=== PATIENT | female | born 1965 | race Caucasian/White ===

== ENCOUNTER 2018-07-01 22:13 | Emergency (ER) | payer OTHER ==
[~2018-07-01] VITALS: Ht 162.6 cm; Wt 88.6 kg
[2018-07-01] MEDS ORDERED: LOSA25TA41 PO (22:35)
[2018-07-01] MEDS ORDERED: ATOR10TA84 PO (22:35)
[2018-07-01] MEDS ORDERED: SITA25 PO (22:35)
[2018-07-01] MEDS ORDERED: METF-960 PO (22:35)
[2018-07-01] MEDS ORDERED: IBUPROFEN 600 MG TABLET PO ONE (23:00)
[2018-07-01 23:15] LABS: GLUCOSE,POINT OF CARE 354 MG/DL (70-110)
[2018-07-02 02:31] VITALS: BP 139/90
== END 2018-07-02 02:49 | disposition home or self-care (01) ==
LOC: EMS 22:14
DX: M54.5 Low back pain (principal); M85.88 Other specified disorders of bone density and structure, other site; I10 Essential (primary) hypertension; E11.9 Type 2 diabetes mellitus without complications; Z88.0 Allergy status to penicillin; Z79.84 Long term (current) use of oral hypoglycemic drugs; Z79.899 Other long term (current) drug therapy; V43.62XA Car passenger injured in collision with other type car in traffic accident, initial encounter; Y93.89 Activity, other specified; Y92.89 Other specified places as the place of occurrence of the external cause; Y99.8 Other external cause status
CPT/HCPCS: 72100